=== PATIENT | male | born 1945 | race Two or more races ===

== ENCOUNTER → 2016-10-24 | Outpatient (CLI) | payer MEDICARE, BC ==
[~2016-10-24] MED LIST: ALBU18HF INH; CARB1CAP5 PEG; CARB1CAP5 PO; CARB1TAB2 PO; CITA20TA5 PO; DONE5TAB7 PO; FLUT12AE2 INH; MAGN311T PO; OMEP-110 PO; POLY17PO3 PO; RANI150C PO; ROLAIDS ULTRA PO; SIME180C44 PO; [UNRECOGNIZED DRUG - CODE] TD; [UNRECOGNIZED DRUG - OTHER] PO; [UNRECOGNIZED DRUG - OTHER] PO
[2016-10-24 15:06] LABS: EPI LOT# 5695218
[2016-10-24 15:09] LABS: PLATELET (PFA) 191 10^3/uL (130-400)
[2016-10-24 16:22] LABS: EPI CARTRIDGE 102 SECONDS (72-193)
== END | disposition home or self-care (01) ==
LOC: STAR 13:47
PROVIDERS: ATTEND Neurological Surgery
DX: Z01.811 Encounter for preprocedural respiratory examination (principal); G20 Parkinson's disease; J98.11 Atelectasis; R06.02 Shortness of breath
CPT/HCPCS: 36415; 71020; 81003; 85014; 85049; 85576; 85610; 85730; 93005

== ENCOUNTER 2016-11-02 10:15 | Day surgery (SDC) | payer MEDICARE, BC ==
[~2016-11-02] VITALS: Ht 170.2 cm; Wt 85.0 kg
[2016-11-02] MEDS ORDERED: LACTATED RINGERS 1,000 ML IV SCH (10:27)
[2016-11-02] MEDS ORDERED: FENTANYL PF 250 MCG/5ML ONE (11:22)
[2016-11-02] MEDS ORDERED: LABETALOL 5MG/ML, 20ML IV PRN (11:30)
[2016-11-02] MEDS ORDERED: HYDROmorphone 1 MG/ML, 1ML IV PRN (11:30)
[2016-11-02] MEDS ORDERED: HYDROcodone/APAP 7.5-325MG/15ML UDC PO PRN (11:30)
[2016-11-02] MEDS ORDERED: OXYcodone 5 MG/5 ML ORAL.SOL UDC PO PRN (11:30)
[2016-11-02] MEDS ORDERED: EPHEDRINE 50 MG/ML, 1ML IVPush PRN (11:30)
[2016-11-02] MEDS ORDERED: hydrALAzine 20 MG/ML, 1ML IV PRN (11:30)
[2016-11-02] MEDS ORDERED: ONDANSETRON 2MG/ML, 2ML IVPush PRN (11:30)
[2016-11-02] MEDS ORDERED: BACITRACIN 50,000 UNIT ONE (11:44)
[2016-11-02] MEDS ORDERED: BACITRACIN OINT 500U/GM, 15 GM ONE (11:44)
[2016-11-02] MEDS ORDERED: BUPIVACAINE/PF-EPI 0.25% 1:200K ONE (11:44)
[2016-11-02] MEDS ORDERED: ONDANSETRON 2MG/ML, 2ML ONE (12:00)
[2016-11-02] MEDS ORDERED: CEFAZOLIN 1,000 MG ONE (12:00)
[2016-11-02] MEDS ORDERED: PROPOFOL 10 MG/ML, 20ML ONE (12:00)
[2016-11-02] MEDS ORDERED: DEXAMETHASONE 4 MG/ML, 1ML ONE (12:00)
[2016-11-02] MEDS ORDERED: FENTANYL PF 100 MCG/2ML ONE (13:15)
[2016-11-02] MEDS ORDERED: hydrALAzine 20 MG/ML, 1ML ONE (13:16)
[2016-11-02] MEDS ORDERED: OXYcodone 5 MG/5 ML ORAL.SOL UDC ONE (13:16)
[2016-11-02] MEDS: FENTANYL PF 100 MCG/2ML IV PRN ×2 (13:19→13:23)
[2016-11-02] MEDS ORDERED: CARBIDOPA/LEVODOPA 25 MG/100 MG TABLET PO ONE (15:00)
== END 2016-11-02 16:50 | disposition home or self-care (01) ==
LOC: OUT 10:15
PROVIDERS: ATTEND Neurological Surgery
DX: Z45.42 Encounter for adjustment and management of neurostimulator (principal); G20 Parkinson's disease; J45.909 Unspecified asthma, uncomplicated
CPT/HCPCS: 61886; C1767; J0360; J0690; J1100; J2405; J2704; J3010; J7120